=== PATIENT | female | born 1970 | race African-American/Black ===

== ENCOUNTER 2017-02-05 22:01 | Observation (INO) | payer MEDICARE, OTHER ==
--- NOTE | ~2017-02-05 | HP ---
History And Physical [place] [address] [facility] [place]. [address] NAME: YOJANA CANTU : 70 STATUS : ADM Johanna PAT#: [id number] AGE: 46 ADM/REG DATE : 02/05/17 MR#: [id number] REPORT SERV DATE: 02/06/17 DICTATED BY: DATE: REPORT STATUS : Draft TRANSCRIBED BY: MODL DATE: 02/06/17 DATE OF ADMISSION: 02/05/2017 PUNCH OPERATOR: Tylor Pearson M.D. NEUROLOGIST: Tl Murry M.D. CHIEF COMPLAINT: Sharp chest pain and pressure, radiating to her back. HISTORY OF PRESENT ILLNESS: This is a 46-year-old female, who presented to the emergency room with complaints of sharp chest pain and pressure, 8/10, that radiated to her back. She did state that she vomited once during her event. She reports the chest pain has been on and off for a few weeks and it occurs more with movement. She reports it comes and goes. Currently, she denies any chest pain or pressure, shortness of breath, nausea, vomiting, diaphoresis, or any palpitations. She reports her last syncopal episode, which she has a history of, occurred about a week ago. She denies any recent illness; however, she does have a productive cough. She denies any personal history of myocardial infarction, strokes, DVTs, or pulmonary embolus. She denies any recent fever or chills, any recent palpitations, or orthopnea. The patient reports that she sees Dr. Pearson in the office and has also seen Shaista Wolff APN. Her last office visit on 06/20 note shows that the patient's PET myocardial perfusion imaging was performed on 05/30/2016 and revealed no evidence of ischemia with an ejection fraction of 51% and it was deemed an overall low-risk PET myocardial perfusion imaging study. Her echocardiogram also showed an ejection fraction of 60% with no focal wall motion abnormalities and no significant valve issues per the office visit note. PAST MEDICAL HISTORY: Atypical chest pain, hyperlipidemia, hypertension, depression, bipolar, HIV, hypothyroidism, migraine-type headaches, neurocardiogenic syncope with a positive tilt table test, noncompliance with medications, palpitations, reactive airway disease, memory loss, seizures with the last one being in 2013, tobacco use, allergies, anxiety, questionable schizophrenia per the patient. PAST SURGICAL HISTORY: Hysterectomy, tubulization, and per the patient fluid removed from back. SOCIAL HISTORY: The patient is currently disabled, worked as a former hairdresser. She is , with three children, one was adopted. She smoked about one pack per week for over 20 years and she quit in 1999. She denies any alcohol or illicit drug use. FAMILY HISTORY: She does not know her father's history. Her mother had hypertension. No known coronary artery disease. REVIEW OF SYSTEMS: A 14-point review of systems was performed, significant for HPI. No other contributory diagnoses identified. History And Physical [address] [address] NAME: YOJANA CANTU : 70 STATUS : ADM Johanna PAT#: [id number] AGE: 46 ADM/REG DATE : 02/05/17 MR#: [id number] REPORT SERV DATE: 02/06/17 DICTATED BY: DATE: REPORT STATUS : Draft TRANSCRIBED BY: GRISELDA DATE: 02/06/17 ALLERGIES: SULFA, REACTION IS RASH. POVIDONE IODINE FROM BETADINE, REACTION IS UNKNOWN. LATEX, REACTION IS DERMATITIS. HOME MEDICATIONS: 1. Epzicom 600/300 mg one tablet p.o. daily. 2. Diamox 250 p.o. twice a day. 3. Elavil 50 mg p.o. at bedtime. 4. Nuvigil 250 p.o. every morning. 5. Dexilant 60 mg p.o. daily. 6. Estrace 1 mg p.o. daily. 7. Flonase nasal spray, one spray nasally daily p.r.n. 8. Neurontin 600 mg p.o. three times daily. 9. Razadyne ER 24 mg p.o. at breakfast. 10.Vistaril 50 mg p.o. at bedtime. 11.Synthroid 75 mcg p.o. daily. 12.Claritin 10 mg p.o. daily. 13.Myrbetriq 50 mg p.o. daily. 14.Remeron 45 mg p.o. at bedtime. 15.Singulair 10 mg p.o. daily. 16.Trileptal 600 mg p.o. three times a day. 17.Klor-Con 10 mEq p.o. daily. 18.Zantac 300 mg p.o. daily. 19.Allergy injections one dose subcu every 14 days, last taken on 01/29/2017. 20.Trintellix 20 mg p.o. daily. PHYSICAL EXAMINATION: VITAL SIGNS: 129/68, heart rate 73, temperature 97.6, respirations 16, and 93% on room air. GENERAL: Cooperative, in no apparent distress. HEENT: Head, normocephalic and anicteric. Normal EOM. PERRLA. No xanthelasma. Nares patent. Moist mucous membranes. NECK: Trachea midline. No thyromegaly, JVD, or bruits. RESPIRATORY: Diminished lung gallegos. CARDIOVASCULAR: Regular rate and rhythm. No murmur, rub, or gallop appreciated. No chest wall tenderness to palpation. ABDOMEN: Obesity. Soft, nontender, nondistended. Normal bowel sounds auscultated throughout. No masses or organomegaly. EXTREMITIES: No peripheral edema. DP/PT and radial pulses palpable bilaterally. No clubbing or cyanosis. SKIN: Warm, dry, and intact. Normal turgor. No pallor or cyanosis. NEURO/PSYCH: Alert and oriented x3 with no acute distress. Affect appropriate to current situation. LABORATORY DATA: Troponin x3 less than 0.02. Sodium 144, potassium 3.6, BUN 13, creatinine 0.80, GFR 102, glucose 137, calcium 9.1, magnesium 2.1. White blood cells 5.0, hemoglobin 11.9, hematocrit 35.6, platelets 271. INR 0.9. EKG done on 02/06/2017 shows sinus rhythm at 76 with early repolarization in the inferolateral leads. Telemetry shows sinus rhythm at 84, no ectopy or arrhythmia or pauses noted. History And Physical [address] [address] NAME: YOJANA CANTU : 70 STATUS : ADM Johanna PAT#: [id number] AGE: 46 ADM/REG DATE : 02/05/17 MR#: [id number] REPORT SERV DATE: 02/06/17 DICTATED BY: DATE: REPORT STATUS : Draft TRANSCRIBED BY: MODL DATE: 02/06/17 ASSESSMENT AND PLAN: 1. Atypical chest pain. Troponins x3 have been negative. Cardiac risk factors include hypertension and hyperlipidemia. Recent PET scan per office visit note on 06/20/2016 shows PET myocardial perfusion test revealed no evidence of ischemia, overall low-risk PET myocardial perfusion imaging study with an ejection fraction of 51%. The same office visit note shows echocardiogram on 05/30/2016 revealed an EF of 60% with no focal wall motion abnormalities and no significant valve issues. Due to the patient's symptoms, she has been observed in the CP[facility] overnight to rule out myocardial infarction with serial enzymes and serial EKGs. She will be kept n.p.o., and we will plan a cardiac PET test today. If the result is low risk or no ischemia, the patient may be discharged home per RN and the patient will follow up with her PCP in one week and with Dr. Pearson at [facility] in three to four weeks. If anything suggestive of ischemia, Cardiology referral will be initiated. 2. Syncope. She reports her syncopal episode was two weeks ago. She sees Dr. Murry, Neurology. We will defer the syncopal episodes to him. Per the workup in May, it indicates that she has overall normal cardiac structure and function on her echocardiogram. 3. Neurocardiogenic syncope. Per the office visit note, she had a positive tilt table test. She will follow up with Cardiology and Neurology, and we will encourage ADAM marie and careful with getting up and out of bed. 4. Hypertension. It appears to be stable. Her vital signs are 129/68. 5. Hyperlipidemia. She does have a history of noncompliance with medications. I will defer testing and management to her PCP regarding that. 6. Palpitations. She denies having any recently. There are no arrhythmias or ectopies or pauses noted on the EKGs or telemetry. We will continue to monitor. EKS/MODL Joan Carr APN / [id number] CC: Milady Peterson, DEWEY, SECURITY OFFICER SUPERVISOR- Mary Bowman M.D. Ravi Chander, M.D.
[2017-02-05 20:24] LABS: BASOPHILS 0.4 %; BASOPHILS ABSOLUTE 0.02 10/3/uL (0.0-0.16); EOSINOPHILS 3.4 %; EOSINOPHILS ABSOLUTE 0.17 10/3/uL (0.0-0.53); ER CBC TAT 0 Hrs 05 Mins; HEMATOCRIT 35.6 % (36.0-48.0); HEMOGLOBIN 11.9 g/dL (12.0-16.0); LYMPHOCYTES ABSOLUTE 2.81 10/3/uL (0.67-4.30); MANUAL DIFF NO %; MEAN CORPUS HGB CONC 33.4 g/dL (32.0-36.0); MEAN CORPUSCULAR HEMOGLOB 34.8 pg (26.0-34.0); MEAN CORPUSCULAR VOLUME 104.1 fL (80-100); MEAN PLATELET VOLUME 8.8 fL (9.2-13.0); MONOCYTES 8.6 %; MONOCYTES ABSOLUTE 0.43 10/3/uL (0.21-1.20); NEUTROPHILS 31.6 %; NEUTROPHILS ABSOLUTE 1.59 10/3/uL (2.02-8.40); PLATELET COUNT 271 10/3/uL (150-400); RBC DISTRIBUTION WIDTH 13.6 % (12.0-16.0); RED CELL COUNT 3.42 10/6/uL (4.0-5.6)
[2017-02-05 20:37] LABS: INTERNATIONAL NORMAL RATI 0.9 UNITS (-); PARTIAL THROMBO TIME 30.6 SEC (22.5-37.2); PROTIME (NOT ORD) 12.3 SEC (12.0-14.5)
[2017-02-05 20:41] LABS: BUN (BLOOD UREA NITROGEN) 13 MG/DL (6-23); CALCIUM, SERUM 9.1 MG/DL (8.5-10.4); CHEST PAIN PROFILE TAT 0 Hrs 22 Mins; CHLORIDE, SERUM 111 MMOL/L (96-112); CO2 (CARBON DIOXIDE) 29 MMOL/L (24-34); GFR AFRICAN AMERICAN 102 ML/MIN (>=60); GFR NON AFRICAN AMERICAN 88 ML/MIN (>=60); GLUCOSE, SERUM 137 MG/DL (60-99); POTASSIUM, SERUM 3.6 MMOL/L (3.5-5.3); SODIUM, SERUM 144 MMOL/L (135-148); TROPONIN I <0.02 NG/ML (<0.05)
[~2017-02-05 22:01] MED LIST: ALEVE220 MG PO; ANADS PO; ATIVAN2 MG PO; DETROLLA4 PO; DICLOFENAC SODIUM PO; EPZICOM 600/3001 TAB OR; EPZICOM 600/3001 TAB PO; FLOVENT DISK50 MCG INH; H2 PO; IPRA17AE INH; KAPIDEX60 MG PO; KEPPRA500 PO; KLONO1 PO; KLONO5 PO; L20 PO; LORT7 PO; PREV30 PO; PROAMAT5 PO; RAZADYNE ER24 MG PO; ROBINUL FORT2 MG PO; SEROQUEL300 MG PO; SINGULAIR1 PO; SPIRIVA INH; TOPAMAX100 PO; TOVIAZ8 MG PO; ZANTAC150 MG PO; ZYRTEC ALLGY10 MG PO; [UNRECOGNIZED DRUG - CODE] PO; [UNRECOGNIZED DRUG - CODE] PO
[2017-02-05] MEDS ORDERED: ALLERGY INJECTIONS SC (22:18)
[2017-02-05] MEDS ORDERED: EPZICOM 600/3001 TAB PO (22:19)
[2017-02-05] MEDS ORDERED: RAZADYNE ER24 MG PO (22:20)
[2017-02-05] MEDS ORDERED: ESTRACE1 MG PO (22:20)
[2017-02-05] MEDS ORDERED: DIAM250B PO (22:20)
[2017-02-05] MEDS ORDERED: KLOR-CON 1010 MEQ PO (22:21)
[2017-02-05] MEDS ORDERED: MYRBETRIQ50 MG PO (22:21)
[2017-02-05] MEDS ORDERED: SINGULAIR1 PO (22:21)
[2017-02-05] MEDS ORDERED: NEUR600 PO (22:22)
[2017-02-05] MEDS ORDERED: AMIT50 PO (22:22)
[2017-02-05] MEDS ORDERED: NUVIGIL250 MG PO (22:22)
[2017-02-05] MEDS ORDERED: ZANTAC300 MG PO (22:22)
[2017-02-05] MEDS ORDERED: VIST50 PO (22:23)
[2017-02-05] MEDS ORDERED: REMERON45 MG PO (22:23)
[2017-02-05] MEDS ORDERED: CLARIT10 PO (22:24)
[2017-02-05] MEDS ORDERED: TRILEPTAL600 MG PO (22:24)
[2017-02-05] MEDS ORDERED: TRINTELLIX20 MG PO (22:24)
[2017-02-05] MEDS ORDERED: KAPIDEX60 MG PO (22:24)
[2017-02-05] MEDS ORDERED: FLONASE NAS (22:25)
[2017-02-05] MEDS ORDERED: SYN075 PO (22:25)
== END 2017-02-06 16:35 | disposition home or self-care (01) ==
LOC: ER 22:01 → CDU1 22:04 → CDU2 22:28
PROVIDERS: Emergency Medicine
DX: R07.89 Other chest pain (principal); R55 Syncope and collapse; I10 Essential (primary) hypertension; E78.5 Hyperlipidemia, unspecified; R00.2 Palpitations; F32.9 Major depressive disorder, single episode, unspecified; E03.9 Hypothyroidism, unspecified; G43.909 Migraine, unspecified, not intractable, without status migrainosus; F41.9 Anxiety disorder, unspecified; Z90.710 Acquired absence of both cervix and uterus; Z87.891 Personal history of nicotine dependence; Z82.49 Family history of ischemic heart disease and other diseases of the circulatory system; Z88.2 Allergy status to sulfonamides; Z91.041 Radiographic dye allergy status; Z91.040 Latex allergy status; Z79.899 Other long term (current) drug therapy; Z98.51 Tubal ligation status; Z98.890 Other specified postprocedural states
CPT/HCPCS: 71020; 78492; 80048; 83735; 84484; 85025; 85610; 85730; 93005; 93017; 96374; 96375; 99285; A9270-GY; A9555; G0378; J2405; J2785